=== PATIENT | male | born 1940 | race Caucasian/White ===

== ENCOUNTER → 2017-07-16 | Outpatient (CLI) | payer MEDICARE | END | disposition home or self-care (01) | LOC: RAD 13:35 | PROVIDERS: ATTEND Nurse Practitioner | DX: R22.1 Localized swelling, mass and lump, neck (principal); E27.8 Other specified disorders of adrenal gland; M54.2 Cervicalgia; M25.511 Pain in right shoulder | CPT/HCPCS: 70490; 71250 ==

== ENCOUNTER → 2017-07-31 | Outpatient (CLI) | payer MEDICARE | END | disposition home or self-care (01) | LOC: RAD 10:32 | PROVIDERS: ATTEND Internal Medicine | DX: C64.1 Malignant neoplasm of right kidney, except renal pelvis (principal) | CPT/HCPCS: 20220; 77012; 88305; 88341; 88342; G0461 ==

== ENCOUNTER → 2018-05-31 | Outpatient (CLI) | payer MEDICARE | END | disposition home or self-care (01) | LOC: CFH 09:55 | PROVIDERS: ATTEND Internal Medicine | DX: I08.3 Combined rheumatic disorders of mitral, aortic and tricuspid valves (principal); I10 Essential (primary) hypertension; I21.4 Non-ST elevation (NSTEMI) myocardial infarction; C64.1 Malignant neoplasm of right kidney, except renal pelvis | CPT/HCPCS: 93306 ==

== ENCOUNTER 2019-04-29 13:06 | Outpatient (CLI) | payer MEDICARE | END 2019-04-29 23:59 | disposition home or self-care (01) | LOC: CFH 13:06 | DX: Z02.9 Encounter for administrative examinations, unspecified (principal) ==

== ENCOUNTER → 2020-07-27 | Outpatient (CLI) | payer MEDICARE | END | disposition home or self-care (01) | LOC: CVU 07:13 | PROVIDERS: ATTEND Internal Medicine | DX: C64.1 Malignant neoplasm of right kidney, except renal pelvis (principal); C64.2 Malignant neoplasm of left kidney, except renal pelvis; I08.3 Combined rheumatic disorders of mitral, aortic and tricuspid valves | CPT/HCPCS: 93306 ==